=== PATIENT | male | born 1960 | race Two or more races ===

== ENCOUNTER 2023-06-18 12:24 | Day surgery (SDC) | payer BC ==
[2023-06-18] VITALS (10 sets, daily range): BP systolic 90–117; BP diastolic 56–78; PULSE 47–65; RESP 11–20; TEMP 98.1; O2SAT 91–97
[~2023-06-18] VITALS: Ht 180.3 cm; Wt 150.0 kg
[2023-06-18] MEDS ORDERED: ASPirin-EC 325mg tab PO ONE (13:00)
[2023-06-18 13:09] LABS: Basophils # (auto) 0 10 ^3/uL (0-0.2); Basophils % (auto) 0.2 % (0.0-2.0); Eosinophils # (auto) 0.1 10 ^3/uL (0-0.8); Eosinophils % (auto) 1.8 % (0.0-7.0); Hematocrit 40.6 % (41.0-53.0); Hemoglobin 13.6 g/dL (13.5-17.5); Lymphocytes # (auto) 1.7 10 ^3/uL (0.4-5.4); Lymphocytes % (auto) 20.6 % (10.0-50.0); Mean Corpuscular Hemoglobin 27.6 pg (28.0-32.0); Mean Corpuscular Hgb Conc. 33.5 g/dL (32.0-36.0); Mean Corpuscular Volume 82.4 fL (80.0-100.0); Monocytes # (auto) 0.6 10 ^3/uL (0-1.3); Monocytes % (auto) 7.9 % (0.0-12.0); Neutrophils # (auto) 5.6 10 ^3/uL (1.6-8.6); Neutrophils % (auto) 69.5 % (37.0-80.0); Red Blood Cells 4.92 10^6/uL (4.5-5.90); Red Cell Distribution Width 14.7 % (11.8-14.3); White Blood Cell 8.1 10^3/uL (4.4-10.8)
[2023-06-18 13:31] LABS: Alanine Aminotransferase 36 U/L (7-40); Albumin 4.2 g/dL (3.2-4.8); Alkaline Phosphatase 155 U/L (46-116); Anion Gap 6 (5-15); Aspartate Aminotransferase 24 U/L (13-40); BUN/Creatinine Ratio 17.4 (10.0-20.0); Bilirubin, Total 1.1 mg/dL (0.2-1.0); Blood Urea Nitrogen 15 mg/dL (9-23); Calcium 8.9 mg/dL (8.7-10.4); Carbon Dioxide 23 mmol/L (20-30); Chloride 107 mmol/L (98-107); Glucose 152 mg/dL (74-106); Potassium 3.9 mmol/L (3.5-5.1); Sodium 136 mmol/L (136-145); Total Protein 6.2 g/dL (5.7-8.2)
[2023-06-18] MEDS ORDERED: FUROSEMIDE 20 MG/2 ML VIAL IV ONE (14:00)
[2023-06-18] MEDS ORDERED: LIDOCAINE 2%HCL (LOCAL ANESTH.) INJ 20ML MDV ONE (14:13)
[2023-06-18] MEDS ORDERED: IODIXANOL 320MG/ML 100ML BTL IV ONE (14:13)
[2023-06-18] MEDS ORDERED: ANGIOMAX 250 MG VIAL IV ONE (14:16)
[2023-06-18] MEDS ORDERED: HEPARIN SODIUM (PORCINE) 5000 UNITS/ML 1ML VIAL ONE (14:16)
[2023-06-18] MEDS ORDERED: VERAPAMIL 2.5MG/ML INJ 2ML VIAL IV ONE (14:16)
[2023-06-18] MEDS ORDERED: SODIUM CHL 0.9% 0 ML ONE (14:17)
[2023-06-18] MEDS ORDERED: MIDAZOLAM HCL 2MG/2ML 2ml VIAL (1mg/ml) ONE (14:17)
[2023-06-18] MEDS ORDERED: fentaNYL CITRATE 100 MCG/2 ML VL ONE (14:17)
[2023-06-18] MEDS ORDERED: METO25TA5 PO (17:09)
[2023-06-18] MEDS ORDERED: ISOS1TAB28 PO (17:09)
[2023-06-18] MEDS ORDERED: TICA90TA PO (17:09)
[2023-06-18] MEDS ORDERED: GABA-339 PO (17:09)
[2023-06-18] MEDS ORDERED: ASPI-543 PO (17:09)
[2023-06-18] MEDS ORDERED: OXY5T GT (17:09)
[2023-06-18] MEDS ORDERED: LOSA25TA15 PO (17:09)
== END 2023-06-18 17:37 | disposition admitted as inpatient to this hospital (09) ==
LOC: ER 12:24 → CATH 14:55 → ER 17:37
PROVIDERS: ATTEND Internal Medicine
DX: I25.10 Atherosclerotic heart disease of native coronary artery without angina pectoris (principal); R07.89 Other chest pain; I10 Essential (primary) hypertension; I25.2 Old myocardial infarction; Z79.82 Long term (current) use of aspirin; Z79.899 Other long term (current) drug therapy; Z98.890 Other specified postprocedural states
CPT/HCPCS: 36415; 71045; 80053; 83605; 83880; 84484; 85025; 86850; 86900; 86901; 93005; 93306; 93458; 93886; 99285; C1725; C1894; J1644; J2250; J3010; J7030; Q9967; 99152; 99153